=== PATIENT | male | born 1995 | race Caucasian/White ===

== ENCOUNTER 2021-01-03 11:10 | Emergency (ER) | payer OTHER ==
[~2021-01-03] VITALS: Ht 188 cm; Wt 107.1 kg
[2021-01-03] MEDS ORDERED: LIDOCAINE 5% (LIDODERM) PATCH TD ONE (13:50)
[2021-01-03] MEDS ORDERED: KETOROLAC 60MG 2ML VIAL IM ONE (13:50)
[2021-01-03] MEDS ORDERED: methocarbamoL 750 MG TAB PO ONE (13:50)
--- NOTE | 2021-01-03 14:16 | REPVR ---
PROCEDURE INFORMATION: Exam: CT Lumbar Spine Without Contrast Exam date and time: 01/03/2021 1:59 PM Age: 25 years old Clinical indication: Pain; Other: Back; Additional info: Severe back pain after lifting generator into humvee TECHNIQUE: Imaging protocol: Computed tomography images of the lumbar spine without contrast. Radiation optimization: All CT scans at this facility use at least one of these dose optimization techniques: automated exposure control; mA and/or kV adjustment per patient size (includes targeted exams where dose is matched to clinical indication); or iterative reconstruction. COMPARISON: No relevant prior studies available. FINDINGS: Vertebrae: There is a small bony defect involving the L5 spinous process, potentially fracture of indeterminate acuity. Normal vertebral body alignment and heights are preserved. Discs/Spinal canal/Neural foramina: There are shallow disc bulges at L3/4, L4/5 and L5/S1. There is no canal or neural foraminal compromise. Soft tissues: Unremarkable. IMPRESSION: Small defect involving the tip of the L5 spinous process, compatible with fracture of indeterminate acuity. Correlation with site of discomfort is recommended. Otherwise, no acute abnormality or advanced degenerative change. Electronically signed by: Saranya Krishna On 01/03/2021 14:16:33 PM
[2021-01-03] MEDS ORDERED: LIDO5DIS41 TOP (14:44)
[2021-01-03] MEDS ORDERED: HYDR-3713 PO (14:44)
[2021-01-03 14:47] VITALS: BP 168/83
[2021-01-03] MEDS ORDERED: **NOTE PATIENT COMMENT** MISC XX SCH (21:00)
== END 2021-01-03 14:55 | disposition home or self-care (01) ==
LOC: M ED 11:10
DX: S32.059A Unspecified fracture of fifth lumbar vertebra, initial encounter for closed fracture (principal); X50.0XXA Overexertion from strenuous movement or load, initial encounter; Y92.89 Other specified places as the place of occurrence of the external cause; Y93.89 Activity, other specified; Y99.1 Military activity
CPT/HCPCS: 72131; 99283; J1885

== ENCOUNTER 2021-02-12 13:30 | Emergency (ER) | payer OTHER ==
[~2021-02-12] VITALS: Ht 188 cm; Wt 106.5 kg
[~2021-02-12 13:30] MED LIST: HYDR-3713 PO; LIDO5DIS41 TOP
[2021-02-12 14:03] VITALS: BP 148/69
[2021-02-12] MEDS ORDERED: NORCO, ANEXSIA 5/325MG TABLET (HYDROcodone/ACETAMINOPHEN) PO ONE (17:20)
--- NOTE | 2021-02-12 20:22 | REPVR ---
PROCEDURE INFORMATION: Exam: MR Lumbar Spine Without Contrast Exam date and time: 02/12/2021 5:17 PM Age: 25 years old Clinical indication: Low back pain; Additional info: Incontinent of bowel TECHNIQUE: Imaging protocol: Multiplanar magnetic resonance images of the lumbar spine without intravenous contrast. COMPARISON: CT Spine, lumbar w/o contrast 01/03/2021 1:53 PM FINDINGS: Vertebral body height and AP alignment is preserved. There is disc desiccation at L5-S1. Negative for discitis/osteomyelitis. Conus medullaris terminates L1. No epidural fluid collection. L1-L2: Unremarkable. L2-L3: Unremarkable. L3-L4: Minimal disc bulge without significant central or foraminal stenosis. L4-L5: Mild bilateral facet joint arthropathy without central or foraminal stenosis. L5-S1: Mild disc bulge and mild bilateral facet joint arthropathy. No significant central canal stenosis. There is mild bilateral foraminal stenosis. IMPRESSION: 1. No acute abnormality involving the lumbar spine. 2. Degenerative disc disease at L5-S1 contributing to mild bilateral foraminal stenosis at L5-S1. 3. No significant central canal compromise throughout. Electronically signed by: Payam Contreras On 02/12/2021 20:22:30 PM
--- NOTE | 2021-02-12 21:08 | REPVR ---
PROCEDURE INFORMATION: Exam: XR Abdomen Exam date and time: 02/12/2021 8:56 PM Age: 25 years old Clinical indication: Constipation; Additional info: Stool incontinence ? constipation TECHNIQUE: Imaging protocol: XR of the abdomen. Views: 2 Views. Upright and supine views. COMPARISON: MRI-Spine, L.S. without con 02/12/2021 7:36 PM FINDINGS: Gastrointestinal tract: Normal. No bowel dilation. Intraperitoneal space: Normal. No free air. Bones/joints: Unremarkable for age. IMPRESSION: No acute findings. Electronically signed by: Payam Conterras On 02/12/2021 21:07:47 PM
[2021-02-12] MEDS ORDERED: COLA100C5 PO (21:49)
[2021-02-12] MEDS ORDERED: CYCL5TAB PO (21:49)
[2021-02-12] MEDS ORDERED: MIRA3350 PO (21:49)
== END 2021-02-12 22:12 | disposition home or self-care (01) ==
LOC: M ED 13:30
DX: M54.9 Dorsalgia, unspecified (principal); K59.00 Constipation, unspecified; R53.1 Weakness; M51.37 Other intervertebral disc degeneration, lumbosacral region

== ENCOUNTER 2021-07-21 02:24 | Emergency (ER) | payer OTHER ==
[~2021-07-21 02:24] MED LIST changes: +COLA100C5 PO; +CYCL5TAB PO; +MIRA3350 PO
[2021-07-21 02:48] LABS: BASO % 0.1 % (0.0-1.0); EOS # 0.1 10^3/uL (0.0-0.5); EOS % 0.5 % (0.0-3.0); HEMATOCRIT 43.1 % (42.0-52.0); HEMOGLOBIN 14.3 g/dl (13.5-17.5); LYMPH # 2.1 10^3/uL (1.5-5.0); LYMPH % 21.9 % (24.0-44.0); MEAN CORPUSCULAR HEMOGLOBIN 28.5 pg (27.0-33.0); MEAN CORPUSCULAR HGB CONC 33.2 g/dl (32.0-36.5); MEAN CORPUSCULAR VOLUME 85.9 fl (80.0-96.0); MONO # 0.4 10^3/uL (0.0-0.8); MONO % 4.4 % (2.0-8.0); NEUTROPHILS # 7.1 10^3/uL (1.5-8.5); NEUTROPHILS % 72.9 % (36.0-66.0); PLATELET COUNT, AUTOMATED 260 10^3/uL (150-450); RED BLOOD COUNT 5.02 10^6/uL (4.30-6.10); WHITE BLOOD COUNT 9.8 10^3/uL (4.0-10.0)
[2021-07-21 03:33] LABS: ACETAMINOPHEN LEVEL < 2.0 UG/ML (10.0-30.0); ALBUMIN 3.8 GM/DL (3.2-5.2); ALT/SGPT 26 U/L (12-78); BILIRUBIN,DIRECT < 0.1 MG/DL (0.0-0.2); BILIRUBIN,TOTAL 0.2 MG/DL (0.2-1.0); BLOOD UREA NITROGEN 11 MG/DL (7-18); CALCIUM LEVEL 7.7 MG/DL (8.5-10.1); CARBON DIOXIDE LEVEL 27 MEQ/L (21-32); CHLORIDE LEVEL 106 MEQ/L (98-107); CREATININE FOR GFR 0.97 MG/DL (0.70-1.30); ETHYL ALCOHOL (ETHANOL) 0.288 % (0.000-0.010); GLOMERULAR FILTRATION RATE > 60.0 (>60); GLUCOSE, FASTING 140 MG/DL (70-100); POTASSIUM SERUM 3.9 MEQ/L (3.5-5.1); SALICYLATE LEVEL < 1.7 MG/DL (5.0-30.0); SODIUM LEVEL 142 MEQ/L (136-145); TOTAL PROTEIN 7.3 GM/DL (6.4-8.2)
[2021-07-21] MEDS ORDERED: NS 1,000 ML IV ONE (06:05)
[2021-07-21 07:00] LABS: AMPHETAMINES LEVEL URINE NEGATIVE (NEGATIVE); BARBITURATES URINE NEGATIVE (NEGATIVE); BENZODIAZEPINES URINE NEGATIVE (NEGATIVE); CANNABINOIDS URINE NEGATIVE (NEGATIVE); COCAINE METABOLITE URINE NEGATIVE (NEGATIVE); METHADONE URINE NEGATIVE (NEGATIVE); OPIATES URINE NEGATIVE (NEGATIVE); PHENCYCLIDINE URINE NEGATIVE (NEGATIVE)
[2021-07-21 08:01] VITALS: BP 125/76
== END 2021-07-21 08:15 | disposition home or self-care (01) ==
LOC: EDBD 02:24 → M ED 02:24
DX: F10.129 Alcohol abuse with intoxication, unspecified (principal); R00.1 Bradycardia, unspecified; I44.0 Atrioventricular block, first degree

== ENCOUNTER 2021-10-13 21:28 | Emergency (ER) | payer OTHER ==
[~2021-10-13] VITALS: Ht 188 cm; Wt 92.3 kg
[2021-10-13 21:31] VITALS: BP 124/74
[2021-10-14 03:10] LABS: BASO # 0.1 10^3/uL (0.0-0.2); BASO % 0.7 % (0.0-1.0); EOS # 0.2 10^3/uL (0.0-0.5); EOS % 1.7 % (0.0-3.0); HEMATOCRIT 41.3 % (42.0-52.0); HEMOGLOBIN 13.8 g/dl (13.5-17.5); LYMPH # 2.4 10^3/uL (1.5-5.0); LYMPH % 25.2 % (24.0-44.0); MEAN CORPUSCULAR HEMOGLOBIN 28.9 pg (27.0-33.0); MEAN CORPUSCULAR HGB CONC 33.4 g/dl (32.0-36.5); MEAN CORPUSCULAR VOLUME 86.4 fl (80.0-96.0); MONO # 0.9 10^3/uL (0.0-0.8); MONO % 9.1 % (2.0-8.0); PLATELET COUNT, AUTOMATED 303 10^3/uL (150-450); RED BLOOD COUNT 4.78 10^6/uL (4.30-6.10); WHITE BLOOD COUNT 9.5 10^3/uL (4.0-10.0)
[2021-10-14 03:32] LABS: BLOOD UREA NITROGEN 14 MG/DL (7-18); C REACTIVE PROTEIN QUANTITATIV 0.86 MG/DL (0.00-0.30); CALCIUM LEVEL 9.6 MG/DL (8.5-10.1); CARBON DIOXIDE LEVEL 27 MEQ/L (21-32); CHLORIDE LEVEL 106 MEQ/L (98-107); GLOMERULAR FILTRATION RATE > 60.0 (>60); GLUCOSE, FASTING 107 MG/DL (70-100); POTASSIUM SERUM 4.1 MEQ/L (3.5-5.1); SODIUM LEVEL 138 MEQ/L (136-145)
[2021-10-14] MEDS ORDERED: ceFAZolin SOD 2 GM in IV 1 EA IV ONE (03:50)
[2021-10-14] MEDS ORDERED: LIDOCAINE W/EPINEPHRINE 1% 20ML VIAL SC ONE (04:00)
[2021-10-14] MEDS ORDERED: DOXY-443 PO (04:53)
[2021-10-14] MEDS ORDERED: traMADol 50 MG TAB (BULK 4 TAB ED) PO ONE (04:55)
== END 2021-10-14 05:30 | disposition home or self-care (01) ==
LOC: M ED 21:28
DX: L02.415 Cutaneous abscess of right lower limb (principal); L03.115 Cellulitis of right lower limb
CPT/HCPCS: 10060; 76882; 80048; 83605; 85025; 86140; 87040; 87070; 87077; 87186; 87205; 96365; 96366; 99283; J0690

== ENCOUNTER 2021-11-05 16:24 | Emergency (ER) | payer OTHER ==
[~2021-11-05] VITALS: Ht 188 cm; Wt 92.3 kg
[~2021-11-05 16:24] MED LIST changes: +DOXY-443 PO
[2021-11-05 16:25] VITALS: BP 141/65
[2021-11-05] MEDS ORDERED: LIDOCAINE 1% MDV 20ML VIAL SC ONE (21:10)
[2021-11-05] MEDS ORDERED: BACTRIM 160MG/800MG DS TAB PO ONE (21:10)
[2021-11-05] MEDS ORDERED: NORCO 5/325MG TABLET (BULK FOR ED) PO ONE (21:10)
[2021-11-05] MEDS ORDERED: HYDR-3713 PO (21:32)
[2021-11-05] MEDS ORDERED: BACT800T5 PO (21:32)
[2021-11-05] MEDS ORDERED: NAPR-837 PO (21:32)
== END 2021-11-05 21:42 | disposition home or self-care (01) ==
LOC: M ED 16:24
DX: L02.415 Cutaneous abscess of right lower limb (principal); L02.416 Cutaneous abscess of left lower limb

== ENCOUNTER 2022-01-19 16:07 | Emergency (ER) | payer OTHER ==
[~2022-01-19] VITALS: Ht 188 cm; Wt 95.0 kg
[~2022-01-19 16:07] MED LIST changes: +BACT800T5 PO; +NAPR-837 PO
[2022-01-19] MEDS ORDERED: LIDOCAINE 1% MDV 20ML VIAL SC ONE (18:05)
[2022-01-19] MEDS ORDERED: DOXY-443 PO (18:58)
[2022-01-19] MEDS ORDERED: NORCO, ANEXSIA 5/325MG TABLET (HYDROcodone/ACETAMINOPHEN) PO ONE (19:00)
[2022-01-19] MEDS ORDERED: DOXYCYCLINE HYCLATE 100MG TABLET PO ONE (19:00)
[2022-01-19 19:07] VITALS: BP 141/81
== END 2022-01-19 19:13 | disposition home or self-care (01) ==
LOC: M ED 16:07
DX: L02.413 Cutaneous abscess of right upper limb (principal)